=== PATIENT | female | born 1980 | race Caucasian/White ===

== ENCOUNTER → 2018-12-17 | Outpatient (CLI) | payer BC ==
--- NOTE | 2018-12-17 13:37 | MM ---
Reason for exam: screening (asymptomatic). Last mammogram was performed 3 years and 1 month ago. History: Patient had first child at age 34. Family history of breast cancer in maternal grandmother. Physical Findings: A clinical breast exam by your physician is recommended on an annual basis and results should be correlated with mammographic findings. MG 3D Screening Mammo W/Cad Bilateral CC and MLO view(s) were taken. Prior study comparison: November 22, 2015, mammogram, performed at [facility]. May 21, 2013, mammogram, performed at [facility]. The breast tissue is extremely dense which could obscure a lesion on mammography. No suspicious abnormality. No significant changes when compared with prior studies. ASSESSMENT: Negative, BI-RAD 1 RECOMMENDATION: Routine screening mammogram of both breasts in 1 year.
== END | disposition home or self-care (01) ==
LOC: RADMAMWWP 08:08
PROVIDERS: ATTEND Obstetrics & Gynecology
DX: Z12.31 Encounter for screening mammogram for malignant neoplasm of breast (principal)
CPT/HCPCS: 77063; 77067

== ENCOUNTER 2020-02-16 06:01 | Inpatient (IN) | payer BC ==
[2020-02-16] MEDS ORDERED: SODIUM CHLORIDE 0.9% 1,000 ML IV STA (06:17)
[2020-02-16] MEDS ORDERED: METOPROLOL TARTRATE 5 MG/5 ML VIAL IVP STA (06:17)
[2020-02-16] MEDS ORDERED: ADENOSINE 3 MG/ML 2 ML VIAL IVP STA (06:17)
--- NOTE | 2020-02-16 06:17 | ED ---
Arrhythmia/Palpitations HPI - General Chief Complaint: Arrhythmia/Palpitations Stated Complaint: Heart racing, facial tightness Time Seen by Provider: 02/16/20 06:14 Source: patient, family, RN notes reviewed, old records reviewed Mode of arrival: wheelchair Limitations: no limitations - History of Present Illness Initial Comments: This is a 39-year-old female the medical history presenting for severe palpitations and increased heart rate. Patient denies any history of similar complaint of she did have an episode in high school and college which she did have an elevated heart rate in the tooth some vaginal maneuvers which improved but never was started on medication. Patient denies chance of current . No fevers no recent travel history no sick contacts no drugs or alcohol abuse is not taking excessive caffeine or diet pills MD Complaint: rapid heart beat, "heart racing", palpitations, irregular heart beat -: hour(s) (2) Arrhythmia History: SVT Associated Symptoms: shortness of breath, anxiety, diaphoresis Treatments Prior to Arrival: vagal maneuvers (tried in ER) - Related Data Home Medications Medication Instructions Recorded Confirmed Cetirizine HCl [Zyrtec] 10 mg PO DAILY 02/16/20 02/16/20 Allergies Allergy/AdvReac Type Severity Reaction Status Date / Time Sulfa (Sulfonamide Allergy Intermediate Rash/Hives Verified 02/16/20 08:04 Antibiotics) iodine Allergy Rash/Hives Verified 02/16/20 08:04 Review of Systems ROS Statement: Those systems with pertinent positive or pertinent negative responses have been documented in the HPI. ROS Other: All systems not noted in ROS Statement are negative. Past Medical History Past Medical History: No Reported History History of Any Multi-Drug Resistant Organisms: None Reported Additional Past Surgical History / Comment(s): widsom teeth Past Anesthesia/Blood Transfusion Reactions: No Reported Reaction Past Psychological History: Anxiety Smoking Status: Never smoker Past Alcohol Use History: None Reported Past Drug Use History: None Reported - Past Family History Father Family Medical History: Myocardial Infarction ([place]) Additional Family Medical History / Comment(s): Father from [place] at the age of 57 yrs. Mother Family Medical History: No Reported History Additional Family Medical History / Comment(s): Mother is healthy General Exam Limitations: no limitations General appearance: alert, anxious, in distress Head exam: Present: atraumatic, normocephalic, normal inspection Eye exam: Present: normal appearance, PERRL, EOMI. Absent: scleral icterus, conjunctival injection, periorbital swelling ENT exam: Present: normal exam, mucous membranes moist Neck exam: Present: normal inspection. Absent: tenderness, meningismus, lymphadenopathy Respiratory exam: Present: normal lung sounds bilaterally. Absent: respiratory distress, wheezes, rales, rhonchi, stridor Cardiovascular Exam: Present: tachycardia, normal heart sounds. Absent: systolic murmur, diastolic murmur, rubs, gallop, clicks GI/Abdominal exam: Present: soft, normal bowel sounds. Absent: distended, tenderness, guarding, rebound, rigid Extremities exam: Present: normal inspection, full ROM, normal capillary refill. Absent: tenderness, pedal edema, joint swelling, calf tenderness Back exam: Present: normal inspection Neurological exam: Present: alert, oriented X3, CN II-XII intact Psychiatric exam: Present: normal affect, normal mood Skin exam: Present: warm, dry, intact, normal color. Absent: rash Course Vital Signs 02/16/20 02/16/20 02/16/20 06:03 06:40 06:46 Temperature 98.8 F Pulse Rate 120 H 106 H Pulse Rate [ Pulse Oximetery ] Respiratory 18 20 18 Rate Blood Pressure 108/92 131/88 131/88 Blood Pressure [Right Arm] O2 Sat by Pulse 100 100 100 Oximetry 02/16/20 02/16/20 02/16/20 06:55 08:09 12:00 Temperature 99.4 F 97.9 F Pulse Rate 106 H 113 H Pulse Rate [ 72 Pulse Oximetery ] Respiratory 18 18 Rate Blood Pressure 123/86 Blood Pressure 117/82 [Right Arm] O2 Sat by Pulse 100 99 Oximetry 02/16/20 15:27 Temperature Pulse Rate Pulse Rate [ 72 Pulse Oximetery ] Respiratory Rate Blood Pressure Blood Pressure [Right Arm] O2 Sat by Pulse Oximetry - Reevaluation(s) Reevaluation #1: 02/16/20 06:36 Medical records reviewed Reevaluation #2: 02/16/20 06:36 Symptoms mildly improved her heart is racing even after 12 of adenosine, SVT to sinus tach Patient symptoms are continuing to improve with beta sharlene EKG Findings - EKG Comments: EKG Findings:: EKG shows SVT rate of 213 QRS 76 QTC 369. Repeat. EKG is sinus tachycardia 125. 128 QRS 62 QTC 430 Medical Decision Making - Medical Decision Making 39 female with rhythm in SVT converted with adenosine to sinus tachycardia, patient be admitted for cardiology observation and treatment - Lab Data Result diagrams: 02/16/20 06:33 02/16/20 06:33 Lab Results 02/16/20 02/16/20 02/16/20 Range/Units 06:33 06:33 06:33 WBC 9.1 (3.8-10.6) k/uL RBC 4.99 (3.80-5.40) m/uL Hgb 14.1 (11.4-16.0) gm/dL Hct 43.6 (34.0-46.0) % MCV 87.5 (80.0-100.0) fL MCH 28.4 (25.0-35.0) pg MCHC 32.4 (31.0-37.0) g/dL RDW 12.9 (11.5-15.5) % Plt Count 395 (150-450) k/uL Neutrophils % 63 % Lymphocytes % 26 % Monocytes % 5 % Eosinophils % 3 % Basophils % 1 % Neutrophils # 5.7 (1.3-7.7) k/uL Lymphocytes # 2.4 (1.0-4.8) k/uL Monocytes # 0.5 (0-1.0) k/uL Eosinophils # 0.3 (0-0.7) k/uL Basophils # 0.1 (0-0.2) k/uL PT 10.0 (9.0-12.0) sec INR 1.0 (<1.2) APTT 21.9 L (22.0-30.0) sec Sodium 143 (137-145) mmol/L Potassium 4.0 (3.5-5.1) mmol/L Chloride 109 H (98-107) mmol/L Carbon Dioxide 23 (22-30) mmol/L Anion Gap 11 mmol/L BUN 15 (7-17) mg/dL Creatinine 0.70 (0.52-1.04) mg/dL Est GFR (CKD-EPI)AfAm >90 (>60 ml/min/1.73 sqM) Est GFR (CKD-EPI)NonAf >90 (>60 ml/min/1.73 sqM) Glucose 108 H (74-99) mg/dL Calcium 9.5 (8.4-10.2) mg/dL Magnesium 1.9 (1.6-2.3) mg/dL Total Bilirubin 0.3 (0.2-1.3) mg/dL AST 51 H (14-36) U/L ALT 47 H (4-34) U/L Alkaline Phosphatase 56 (38-126) U/L Creatine Kinase 50 (30-135) U/L Troponin I (0.000-0.034) ng/mL Total Protein 7.7 (6.3-8.2) g/dL Albumin 4.7 (3.5-5.0) g/dL TSH 3.310 (0.465-4.680) mIU/L 02/16/20 Range/Units 06:33 WBC (3.8-10.6) k/uL RBC (3.80-5.40) m/uL Hgb (11.4-16.0) gm/dL Hct (34.0-46.0) % MCV (80.0-100.0) fL MCH (25.0-35.0) pg MCHC (31.0-37.0) g/dL RDW (11.5-15.5) % Plt Count (150-450) k/uL Neutrophils % % Lymphocytes % % Monocytes % % Eosinophils % % Basophils % % Neutrophils # (1.3-7.7) k/uL Lymphocytes # (1.0-4.8) k/uL Monocytes # (0-1.0) k/uL Eosinophils # (0-0.7) k/uL Basophils # (0-0.2) k/uL PT (9.0-12.0) sec INR (<1.2) APTT (22.0-30.0) sec Sodium (137-145) mmol/L Potassium (3.5-5.1) mmol/L Chloride (98-107) mmol/L Carbon Dioxide (22-30) mmol/L Anion Gap mmol/L BUN (7-17) mg/dL Creatinine (0.52-1.04) mg/dL Est GFR (CKD-EPI)AfAm (>60 ml/min/1.73 sqM) Est GFR (CKD-EPI)NonAf (>60 ml/min/1.73 sqM) Glucose (74-99) mg/dL Calcium (8.4-10.2) mg/dL Magnesium (1.6-2.3) mg/dL Total Bilirubin (0.2-1.3) mg/dL AST (14-36) U/L ALT (4-34) U/L Alkaline Phosphatase (38-126) U/L Creatine Kinase (30-135) U/L Troponin I <0.012 (0.000-0.034) ng/mL Total Protein (6.3-8.2) g/dL Albumin (3.5-5.0) g/dL TSH (0.465-4.680) mIU/L Critical Care Time Critical Care Time: Yes Total Critical Care Time: 31 Disposition Clinical Impression: SVT (supraventricular tachycardia), Palpitations, Tachycardia Disposition: ADMITTED IP TO THIS [facility] Condition: Fair Is patient prescribed a controlled substance at d/c from ED?: No
[2020-02-16] MEDS ORDERED: NITROGLYCERIN SL TABS 0.4 MG TAB SUBLINGUAL PRN (06:37)
[2020-02-16 06:45] LABS: Basophils # (A) 0.1 k/uL (0-0.2); Basophils % (A) 1 %; Eosinophils # (A) 0.3 k/uL (0-0.7); Eosinophils % (A) 3 %; HCT 43.6 % (34.0-46.0); HGB 14.1 gm/dL (11.4-16.0); Lymphocytes # (A) 2.4 k/uL (1.0-4.8); Lymphocytes % (A) 26 %; MCH 28.4 pg (25.0-35.0); MCHC 32.4 g/dL (31.0-37.0); MCV 87.5 fL (80.0-100.0); Mean Platelet Volume 7.8; Monocytes # (A) 0.5 k/uL (0-1.0); Monocytes % (A) 5 %; Neutrophils # (A) 5.7 k/uL (1.3-7.7); Neutrophils % (A) 63 %; Platelet Count 395 k/uL (150-450); RBC 4.99 m/uL (3.80-5.40); RDW 12.9 % (11.5-15.5); WBC 9.1 k/uL (3.8-10.6)
[2020-02-16 06:54] LABS: ALT 47 U/L (4-34); AST 51 U/L (14-36); African American GFR (CKD) >90 (>60 ml/min/1.73 sqM); Albumin 4.7 g/dL (3.5-5.0); Alkaline Phosphatase 56 U/L (38-126); Anion Gap 11 mmol/L; Blood Urea Nitrogen 15 mg/dL (7-17); Calcium 9.5 mg/dL (8.4-10.2); Carbon Dioxide 23 mmol/L (22-30); Chloride 109 mmol/L (98-107); Creatine Kinase 50 U/L (30-135); Glucose 108 mg/dL (74-99); Magnesium 1.9 mg/dL (1.6-2.3); Non-African American GFR(CKD) >90 (>60 ml/min/1.73 sqM); Sodium 143 mmol/L (137-145); Total Bilirubin 0.3 mg/dL (0.2-1.3); Total Protein 7.7 g/dL (6.3-8.2)
[2020-02-16 07:03] LABS: Partial Thromboplastin Time 21.9 sec (22.0-30.0)
[2020-02-16] MEDS: METOPROLOL SUCCINATE (ER) 25 MG TAB.ER.24H PO SCH (10:00)
--- NOTE | 2020-02-16 11:01 | ECHOF ---
Referral Reason:svt MEASUREMENTS -------- HEIGHT: 157.5 cm WEIGHT: 59.0 kg BP: 131/88 RVIDd: 2.7 cm (< 3.3) IVSd: 0.8 cm (0.6 - 1.1) LVIDd: 3.5 cm (3.9 - 5.3) LVPWd: 0.8 cm (0.6 - 1.1) IVSs: 1.3 cm LVIDs: 2.0 cm LVPWs: 1.5 cm LAESV Index (A-L): 18.47 ml/m Ao Diam: 3.1 cm (2.0 - 3.7) AV Cusp: 1.7 cm (1.5 - 2.6) LA Diam: 1.6 cm (2.7 - 3.8) MV EXCURSION: 20.954 mm (> 18.000) MV EF SLOPE: 127 mm/s (70 - 150) EPSS: 1.0 cm MV E Jeet: 1.09 m/s MV DecT: 229 ms MV A Jeet: 0.65 m/s MV E/A Ratio: 1.67 RAP: 5.00 mmHg RVSP: 10.49 mmHg TAPSE: 21.52 mm FINDINGS -------- Resting tachycardia (HR>100bpm). This was a technically good study. The left ventricular size is normal. Left ventricular wall thickness is normal. Overall left vent ricular systolic function is normal with, an EF between 55 - 60 %. The diastolic filling pattern is normal for the age of the patient 8.69. The right ventricle is normal in size. The left atrial size is normal. Normal LA size by volume 22+/-6 ml/m2. The right atrial size is normal. Interatrial and interventricular septum intact. The aortic valve is trileaflet and appears structurally normal. The mitral valve is normal. There is trace mitral regurgitation. The tricuspid valve appears structurally normal. Trace tricuspid regurgitation present. Right simone tricular systolic pressure is normal at < 35 mmHg. There is no pulmonic regurgitation present. The aortic root size is normal. Normal inferior vena cava with normal inspiratory collapse consistent with estimated right atrial pre ssure of 5 mmHg. There is no pericardial effusion. CONCLUSIONS -------- 1. Left ventricular wall thickness is normal. 2. Overall left ventricular systolic function is normal with, an EF between 55 - 60 %. 3. The diastolic filling pattern is normal for the age of the patient 8.69 4. There is trace mitral regurgitation. 5. Trace tricuspid regurgitation present. AGENCY DEVELOPMENT MANAGER: Aria Worthy RDCS
[2020-02-16] MEDS ORDERED: HEPARIN SODIUM,PORCINE 5,000 UNIT/ML 1 ML VIAL IV PRN (11:19)
[2020-02-16] MEDS ORDERED: HEPARIN SODIUM,PORCINE 5,000 UNIT/ML 1 ML VIAL IV ONE (11:19)
[2020-02-16] MEDS: HEPARIN SOD,PORK IN 0.45% NACL 25,000 UNIT in 0.45% NACL 1 250ML.BAG IV SCH (11:44)
--- NOTE | 2020-02-16 15:05 | CONS ---
CONSULTATION Tati is a 39-year-old lady with history of intermittent episodes of palpitations all her life and prior history of SVT, who has not seen a director of events in the last 10 years, comes into hospital complaining of sustained palpitations. She had some chest discomfort associated with it. When she first came to the hospital, she was found to be in SVT with a heart rate of 213. She converted to sinus rhythm following an adenosine. At the time of my evaluation, she is in sinus rhythm with PACs in sinus tachycardia. She denies chest pain, difficulty in breathing, dizziness or syncope. There is no history of leg edema. She is fairly active physically. PAST MEDICAL HISTORY: Negative for hypertension, diabetes, dyslipidemia. MEDICATIONS: She is on Zyrtec at home. ALLERGIES: IV DYE and SULFA. FAMILY HISTORY: Significant for premature coronary artery disease. SOCIAL HISTORY: Negative for current smoking, EtOH abuse, or drug abuse. REVIEW OF SYSTEMS: HEENT: Unremarkable. CARDIAC: As described above. RESPIRATORY: As described above. GI: Negative. GENITOURINARY: Negative. ALLERGY/IMMUNOLOGY: Negative. SKIN: Negative. MUSCULOSKELETAL: Negative. DERM: Negative. CONSTITUTIONAL: Negative. ONCOLOGICAL: Negative. TELEVISION REPAIRMAN: Negative. PHYSICAL EXAM: Comfortable at rest. Heart rate is around 110 beats per minute. Blood pressure is 143/86, respiratory rate is 18. O2 saturation is 100% on room air. There is no jugular venous distention. Carotid upstroke is normal. There is no bruit. Chest exam reveals good air entry bilaterally. Heart exam reveals first and second heart sounds. No gallop. No murmur. Abdomen is soft, nontender. Exam of extremities did not reveal edema. Peripheral pulses are felt. LABS: Show that the hemoglobin is 14.1, platelet count is 395, potassium is 4, creatinine is 0.7. Troponin is negative. TSH is normal. ASSESSMENT: Paroxysmal SVT. PLAN: I will start the patient on a beta sharlene. Obtain a 2D echo. If she has a structurally normal heart doing well, will be able to discharge her home tomorrow. I talked about her treatment options in the long run including EP evaluation and ablation. She is going to think over these and will make a decision at the time of discharge. I anticipate her going home tomorrow. MMODL / IJN: [id number] /
--- NOTE | 2020-02-16 16:34 | PN ---
PROGRESS NOTE ADDENDUM NOTE: This is a 39-year-old lady who is admitted to hospital with SVT, had some jaw discomfort during the SVT and had mild troponin elevation. The troponin elevation could be due to supply/demand mismatch related SVT with a heart rate of 200 beats per minute. Echocardiogram did not reveal any wall motion abnormalities. I am going to start her on heparin while we wait for another set of troponin to come, then decide on either doing a stress test or a cardiac catheterization tomorrow. MMODL / IJN: [id number] /
[2020-02-16] MEDS ORDERED: LORazepam 1 MG TAB PO PRN (17:33)
--- NOTE | 2020-02-16 17:33 | P.HPIM ---
History of Present Illness H&P Date: 02/16/20 Tati Shipley, is a 39-year-old female who presented to [facility] emergency room with a chief complaint of palpitation, patient stated that she had episodes of SVT many years ago, and her symptoms felt like a new episode of SVT. She was evaluated in the emergency room and was found to have SVT, she was given add Indocin and was admitted to telemetry floor cardiology consultation was requested, patient denies any chest pain however she felt a tightness sensation in her neck and in her jaw, her first troponin level was negative however the second one was slightly elevated, patient was evaluated by cardiology and was started on IV heparin, awaiting further evaluation. On review of systems otherwise patient denies any complaints there is no fever or chills no headache or dizziness no chest pain no shortness of breath no cough no nausea or vomiting no abdominal pain no diarrhea no burning with urination no frequency or urgency and no hematuria no weakness or numbness in any of her extremities no change in her vision speech or gait. Past Medical History Past Medical History: GERD/Reflux, Renal Disease, Supraventricular Tachycardia (SVT) Additional Past Medical History / Comment(s): Prolapsed mitral valve, past SVT converted with caratid massage and on her own, seasonal allergies, UTI, nephrolithiasis History of Any Multi-Drug Resistant Organisms: None Reported Past Surgical History: Section Additional Past Surgical History / Comment(s): widsom teeth extraction Past Anesthesia/Blood Transfusion Reactions: No Reported Reaction Smoking Status: Never smoker - Past Family History Father Family Medical History: Myocardial Infarction ([place]) Additional Family Medical History / Comment(s): Father from [place] at the age of 57 yrs. Mother Family Medical History: No Reported History Additional Family Medical History / Comment(s): Mother is healthy Medications and Allergies Home Medications Medication Instructions Recorded Confirmed Type Cetirizine HCl [Zyrtec] 10 mg PO DAILY 02/16/20 02/16/20 History Allergies Allergy/AdvReac Type Severity Reaction Status Date / Time Sulfa (Sulfonamide Allergy Intermediate Rash/Hives Verified 02/16/20 08:04 Antibiotics) iodine Allergy Rash/Hives Verified 02/16/20 08:04 Physical Exam Vitals: Vital Signs Temp Pulse Resp BP Pulse Ox 02/16/20 08:09 99.4 F 113 H 18 123/86 100 02/16/20 06:55 106 H 02/16/20 06:46 106 H 18 131/88 100 02/16/20 06:40 120 H 20 131/88 100 02/16/20 06:03 98.8 F 18 108/92 100 Intake and Output 02/15/20 02/16/20 02/16/20 22:59 06:59 14:59 Other: Weight 58.967 kg 58.967 kg In general patient is alert and oriented 3 in no apparent distress HEENT head normocephalic and atraumatic Neck is supple no JVD no goiter no lymphadenopathy Chest exam reveals clear respiratory sounds no crackles no wheezing Cardiac exam reveals regular heart sounds no gallops no murmurs Abdomen is soft nontender no organomegaly with normal bowel sounds Extremity exam reveals no edema no cyanosis or clubbing Neurological examination reveals no gross focal deficit Results CBC & Chem 7: 02/16/20 06:33 02/16/20 06:33 Labs: Abnormal Lab Results - Last 24 Hours (Table) 02/16/20 02/16/20 Range/Units 06:33 06:33 APTT 21.9 L (22.0-30.0) sec Chloride 109 H (98-107) mmol/L Glucose 108 H (74-99) mg/dL AST 51 H (14-36) U/L ALT 47 H (4-34) U/L Thrombosis Risk Factor Assmnt - Choose All That Apply Any of the Below Risk Factors Present?: Yes Each Factor Represents 1 point: Age 41-60 years Other Risk Factors: No Other congenital or acquired thrombophilia - If yes, enter type in comment: No Thrombosis Risk Factor Assessment Total Risk Factor Score: 1 Thrombosis Risk Factor Assessment Level: Low Risk Assessment and Plan Plan: 1. Episode of SVT responded to Adenosine in the emergency room 2. Neck and jaw tightness was slight elevation in troponin level patient was started on IV heparin cardiology with reevaluate 3. Slight elevation in liver enzymes will monitor 4. Anxiety disorder will give Ativan at bedtime as needed Will follow during this admission for medical management
[2020-02-16] MEDS: LORATADINE 10 MG TAB PO SCH (17:49)
[2020-02-17 02:00] LABS: Cholesterol 137 mg/dL (<200); HDL Cholesterol 47 mg/dL (40-60); LDL Cholesterol,Calculated 75 mg/dL (0-99); Triglycerides 73 mg/dL (<150)
[2020-02-17 05:06] VITALS: RESP 18
[2020-02-17] MEDS ORDERED: ASPIRIN 325 MG TAB PO SCH (09:00)
[2020-02-17] MEDS: METOPROLOL SUCCINATE (ER) 25 MG TAB.ER.24H PO SCH (11:58)
[2020-02-17] MEDS: LORATADINE 10 MG TAB PO SCH (11:59)
[2020-02-17] MEDS: HEPARIN SOD,PORK IN 0.45% NACL 25,000 UNIT in 0.45% NACL 1 250ML.BAG IV SCH (12:34)
[2020-02-17 12:37] VITALS: BP 117/62; PULSE 82; TEMP 98.2
--- NOTE | 2020-02-17 14:12 | ECHOS ---
STRESS ECHOCARDIOGRAM LUMASON: Vial INDICATIONS: MEDICATIONS: BASELINE HEART RATE: 80 BASELINE BLOOD PRESSURE: 108/87 MAXIMUM HEART RATE: 163 MAXIMUM BLOOD PRESSURE: 129/75 85% MPHR: 152 100% MPHR: 179 METS: MAXIMUM STAGE REACHED: TOTAL EXERCISE TIME: DATE OF SERVICE: Baseline EKG revealed a normal sinus rhythm with nonspecific T-wave flattening. Patient walked on standard Betito protocol for 10 minutes 20 seconds, achieved a maximal heart rate of 160 beats per minute which is well above 85% of her predicted maximal. She did not have any angina. She developed fatigue and shortness of breath. There were rare isolated PACs and PVCs. There was no ST-segment changes to indicate ischemia. By EKG criteria, this is a negative stress test with excellent exercise capacity. Baseline echo images revealed normal wall motion and wall thickening of all segments. At peak exercise there was good augmentation of left ventricular, wall motion and wall thickening of all segments suggesting that there is no evidence of stress-induced ischemia on this study. FINAL IMPRESSION: 1. Excellent exercise capacity with a negative stress test by EKG criteria. 2. Normal stress echocardiogram without evidence of ischemia. MMODL / IJN: [id number] /
--- NOTE | 2020-02-17 16:03 | PN ---
PROGRESS NOTE Tati is a 39-year-old lady who was admitted to hospital with SVT, had mild elevation in troponin, probably secondary to supply-demand mismatch. She is doing well and has not had any issues since yesterday. I started her on heparin. Echocardiogram shows normal LV function and wall motion. There is no evidence of myocardial infarction, otherwise. I am going to obtain a stress echo on her and if she has ischemia, we will consider cardiac catheterization. If not, she will be discharged home. PHYSICAL EXAM: She is comfortable at rest. Vital signs are stable. O2 saturation is 97% on room air. There is no jugular venous distention. Carotid upstroke is normal. There is no bruit. Chest exam reveals good air entry bilaterally. Heart exam reveals first and second heart sounds. No gallop. Exam of extremities did not reveal any edema. LABS: Show that the TSH is normal at 3.3, troponins were flat across at 0.3, 0.3, and 0.1. LDL cholesterol is 75. ASSESSMENT: 1. Paroxysmal supraventricular tachycardia. 2. Elevated troponin secondary to tachycardia. PLAN: I will obtain a stress echo on her. If this is normal, she will go home on the beta blockers and we will consider EP evaluation in the outpatient setting. MMODL / IJN: [id number] /
--- NOTE | 2020-02-17 17:25 | P.DS ---
Providers Date of admission: 02/16/20 06:37 Expected date of discharge: 02/17/20 Attending physician: Catrachito Chicas Consults: 02/16/20 06:37 Consult Physician Urgent Consulting Provider: Jocelyn Sparrow Consult Reason/Comments: svt Do you want consulting provider notified?: Yes Primary care physician: Catrachito [facility] Course: Diagnosis on discharge: 1. Episode of SVT responded to Adenosine in the emergency room, patient was started on Ecotrin and metoprolol succinate 25 mg once daily by cardiology. 2. Neck and jaw tightness was slight elevation in troponin level , stress echo was done on 02/17/2020 and was within normal limits patient was cleared by cardiology for discharge 3. Slight elevation in liver enzymes will monitor 4. Anxiety disorder will give Ativan at bedtime as needed Hospital course: Tati Shipley, is a 39-year-old female who presented to [facility] emergency room with a chief complaint of palpitation, patient stated that she had episodes of SVT many years ago, and her symptoms felt like a new episode of SVT. She was evaluated in the emergency room and was found to have SVT, she was given add Indocin and was admitted to telemetry floor cardiology consultation was requested, patient denies any chest pain however she felt a tightness sensation in her neck and in her jaw, her first troponin level was negative however the second one was slightly elevated, patient was evaluated by cardiology and was started on IV heparin, awaiting further evaluation. On review of systems otherwise patient denies any complaints there is no fever or chills no headache or dizziness no chest pain no shortness of breath no cough no nausea or vomiting no abdominal pain no diarrhea no burning with urination no frequency or urgency and no hematuria no weakness or numbness in any of her extremities no change in her vision speech or gait. On 02/17/2020 patient was seen and examined on the telemetry floor she is alert and oriented 3 in no apparent distress there is no fever or chills no headache or dizziness no chest pain or shortness of breath no cough no nausea or vomiting no abdominal pain no diarrhea no burning with urination no frequency or urgency no hematuria no new episodes of tachycardia patient underwent stress echo today which was within normal limits she was cleared by cardiology for discharge. Patient Condition at Discharge: Fair Plan - Discharge Summary Discharge Rx Participant: No New Discharge Prescriptions: New Aspirin EC [Ecotrin Low Dose] 81 mg PO DAILY 30 Days #30 tablet. Metoprolol Succinate (ER) [Toprol XL] 25 mg PO DAILY tab.er.24h Continue Cetirizine HCl [Zyrtec] 10 mg PO DAILY Discharge Medication List Cetirizine HCl [Zyrtec] 10 mg PO DAILY 02/16/20 [History] Aspirin EC [Ecotrin Low Dose] 81 mg PO DAILY 30 Days #30 tablet. 02/17/20 [Rx] Metoprolol Succinate (ER) [Toprol XL] 25 mg PO DAILY tab.er.24h 02/17/20 [Rx] Follow up Appointment(s)/Referral(s): Gerri Means MD [STAFF PHYSICIAN] - 1 Week (Office closed - please call to make an appointment) Catrachito Chicas MD [Primary Care Provider] - 1-2 days (Office closed - please call to make an appointment) Patient Instructions/Handouts: Supraventricular Tachycardia (DC)
== END 2020-02-17 17:49 | disposition home or self-care (01) | DRG 310 ==
LOC: EC 06:01 → 3SCARD 06:37
PROVIDERS: ADMIT Internal Medicine; ATTEND Internal Medicine
DX: I47.1 Supraventricular tachycardia (principal); F41.9 Anxiety disorder, unspecified; R79.89 Other specified abnormal findings of blood chemistry; R94.5 Abnormal results of liver function studies; I34.1 Nonrheumatic mitral (valve) prolapse; J30.2 Other seasonal allergic rhinitis; Z88.2 Allergy status to sulfonamides; Z91.041 Radiographic dye allergy status; Z82.49 Family history of ischemic heart disease and other diseases of the circulatory system; Z87.442 Personal history of urinary calculi; Z11.59 Encounter for screening for other viral diseases
CPT/HCPCS: 36415; 80053; 80061; 82550; 83735; 84443; 84484; 85025; 85610; 85730; 93005; 93306; 93351; 96361; 96365; 96375; 96376; 99291

== ENCOUNTER → 2020-07-27 | Outpatient (CLI) | payer BC ==
--- NOTE | 2020-07-28 14:49 | MM ---
Reason for exam: screening (asymptomatic). Last mammogram was performed 1 year and 7 months ago. History: Patient had first child at age 34. Family history of breast cancer in maternal grandmother, breast cancer in maternal cousin at age 40, and breast cancer in maternal aunt at age 78. Physical Findings: A clinical breast exam by your physician is recommended on an annual basis and results should be correlated with mammographic findings. MG 3D Screening Mammo W/Cad Bilateral CC and MLO view(s) were taken. Prior study comparison: December 17, 2018, bilateral MG 3d screening mammo w/cad. November 22, 2015, mammogram, performed at [facility]. The breast tissue is extremely dense which could obscure a lesion on mammography. There is no discrete abnormality. Benign bilateral axillary lymph nodes redemonstrated. ASSESSMENT: Negative, BI-RAD 1 RECOMMENDATION: Routine screening mammogram of both breasts in 1 year. Some consider bilateral ultrasound surveillance in patient with extremely dense fibroglandular tissue.
== END | disposition home or self-care (01) ==
LOC: RADMAMWWP 08:14
PROVIDERS: ATTEND Internal Medicine Geriatric Medicine
DX: Z12.31 Encounter for screening mammogram for malignant neoplasm of breast (principal)
CPT/HCPCS: 77063; 77067

== ENCOUNTER 2021-08-14 12:05 | Inpatient (IN) | payer BC ==
[2021-08-14] MEDS ORDERED: ADENOSINE 3 MG/ML 2 ML VIAL IVP STA ×2 (12:34)
[2021-08-14] MEDS ORDERED: SODIUM CHLORIDE 0.9% 1,000 ML IV STA ×2 (12:44→13:43)
--- NOTE | 2021-08-14 12:48 | ED ---
General Adult HPI - General Chief complaint: Arrhythmia/Palpitations Stated complaint: poss svt Time Seen by Provider: 08/14/21 12:11 Source: patient Mode of arrival: wheelchair Limitations: no limitations - History of Present Illness Initial comments: Dictation was produced using [employer] dictation software. please excuse any grammatical, word or spelling errors. Chief Complaint: Patient is a 41-year-old female presents emergency department for palpitations History of Present Illness: Patient is a 41-year-old female she has a past medical history of supraventricular tachycardia. Patient states that she began having palpitations today. Patient has been evaluated by cardiology for SVTs in the past. She takes a daily beta sharlene. Symptoms began earlier today. She has had success multiple times in the past trying to manage her palpitations by herself with Valsalva maneuver at home. States that she tried however was unsu ccessful. She drove herself to the emergency room. She denies any chest pain. No shortness of breath. No numbness or paresthesias. Last time she had to it chemical cardioversion was approximately 1 year ago. The ROS documented in this emergency department record has been reviewed and confirmed by me. Those systems with pertinent positive or negative responses have been documented in the HPI. All other systems are other negative and/or noncontributory. PHYSICAL EXAM: General Impression: Alert and oriented x3, not in acute distress, tremulous HEENT: Normocephalic atraumatic, extra-ocular movements intact, pupils equal and reactive to light bilaterally, mucous membranes moist. Cardiovascular: Tachycardic Chest: Able to complete full sentences, no retractions, no tachypnea Abdomen: abdomen soft, non-tender, non-distended, no organomegaly Musculoskeletal: Pulses present and equal in all extremities, no peripheral edema Motor: no focal deficits noted Neurological: CN II-XII grossly intact, no focal motor or sensory deficits noted Skin: Intact with no visualized rashes Psych: Anxious ED course: Is a 41-year-old female she has past medical history of SVT. She presents emergency department for palpitations. Upon arrival shows heart rate of 213, rest of vital signs within acceptable limits. EKG shows supraventricular tachycardia with a heart rate of 210. Initial EKG showed SVT with signs of rate-dependent ischemia. Chemical cardioversion was attempted with 6 mg of adenosine with no success. Patient started to follow anxious given lorazepam. Patient given 12 milligrams of adenosine with successful chemical cardioversion. Patient now sinus tachycardic. There does appear to be improvement of ST depressions but still slightly apparent in V3 through V5. Chin reevaluated at bedside at 2:15 PM. She is well-appearing denies any symptoms of shortness of breath or chest pain. Laboratory evaluation obtained. CBC unremarkable. Metabolic panel is negative. Cardiac enzymes negative. Patient's been monitored in the emergency department for approximately 2 hours with significant tachycardia still in the 140s. Monitor shows that patient is sinus tachycardia. Cardiology requested patient be given oral metoprolol. Patient be observed for persistent tachycardia, no obvious source, status post chemical cardioversion to treat SVT. Patient will be admitted to Dr. Vyas service. EKG interpretation: Ventricular rate 222, SVT, QRS 68, QTC 273. No MI prolong ation, no QTC prolongation. There does appear to be some rate-dependent ischemia with mild ST depressions in inferior leads and septal lateral precordial leads. - Related Data Home Medications Medication Instructions Recorded Confirmed Cetirizine HCl [Zyrtec] 10 mg PO DAILY 02/16/20 02/16/20 Previous Rx's Medication Instructions Recorded Aspirin EC [Ecotrin Low Dose] 81 mg PO DAILY 30 Days #30 02/17/20 tablet. Metoprolol Succinate (ER) [Toprol 25 mg PO DAILY tab.er.24h 02/17/20 XL] Allergies Allergy/AdvReac Type Severity Reaction Status Date / Time Sulfa (Sulfonamide Allergy Intermediate Rash/Hives Verified 08/14/21 12:07 Antibiotics) iodine Allergy Rash/Hives Verified 08/14/21 12:07 Review of Systems ROS Statement: Those systems with pertinent positive or pertinent negative responses have been documented in the HPI. ROS Other: All systems not noted in ROS Statement are negative. Past Medical History Past Medical History: Supraventricular Tachycardia (SVT) Additional Past Medical History / Comment(s): Prolapsed mitral valve, past SVT converted with caratid massage and on her own, seasonal allergies, UTI, ne phrolithiasis History of Any Multi-Drug Resistant Organisms: None Reported Past Surgical History: No Surgical Hx Reported Additional Past Surgical History / Comment(s): widsom teeth Past Anesthesia/Blood Transfusion Reactions: No Reported Reaction Past Psychological History: Anxiety Smoking Status: Never smoker Past Alcohol Use History: None Reported Past Drug Use History: None Reported - Past Family History Father Family Medical History: Myocardial Infarction ([place]) Additional Family Medical History / Comment(s): Father from [place] at the age of 57 yrs. Mother Family Medical History: No Reported History Additional Family Medical History / Comment(s): Mother is healthy General Exam Limitations: no limitations Course Vital Signs 08/14/21 08/14/21 08/14/21 12:08 12:40 12:50 Temperature 97.5 F L Pulse Rate 213 H 135 H 135 H Respiratory 20 18 24 Rate Blood Pressure 142/85 127/69 102/77 O2 Sat by Pulse 99 100 100 Oximetry 08/14/21 08/14/21 13:00 13:10 Temperature Pulse Rate 141 H 140 H Respiratory 22 20 Rate Blood Pressure 121/66 121/66 O2 Sat by Pulse 100 Oximetry Medical Decision Making - Lab Data Result diagrams: 08/14/21 12:45 08/14/21 12:45 Lab Results 08/14/21 08/14/21 08/14/21 Range/Units 12:45 12:45 12:45 WBC 8.4 (3.8-10.6) k/uL RBC 4.90 (3.80-5.40) m/uL Hgb 12.8 (11.4-16.0) gm/dL Hct 40.2 (34.0-46.0) % MCV 82.1 (80.0-100.0) fL MCH 26.2 (25.0-35.0) pg MCHC 32.0 (31.0-37.0) g/dL RDW 12.9 (11.5-15.5) % Plt Count 344 (150-450) k/uL MPV 7.3 Neutrophils % 71 % Lymphocytes % 20 % Monocytes % 6 % Eosinophils % 1 % Basophils % 0 % Neutrophils # 5.9 (1.3-7.7) k/uL Lymphocytes # 1.7 (1.0-4.8) k/uL Monocytes # 0.5 (0-1.0) k/uL Eosinophils # 0.1 (0-0.7) k/uL Basophils # 0.0 (0-0.2) k/uL Sodium 138 (137-145) mmol/L Potassium 4.0 (3.5-5.1) mmol/L Chloride 105 (98-107) mmol/L Carbon Dioxide 25 (22-30) mmol/L Anion Gap 8 mmol/L BUN 18 H (7-17) mg/dL Creatinine 0.55 (0.52-1.04) mg/dL Est GFR (CKD-EPI)AfAm >90 (>60 ml/min/1.73 sqM) Est GFR (CKD-EPI)NonAf >90 (>60 ml/min/1.73 sqM) Glucose 117 H (74-99) mg/dL Calcium 10.0 (8.4-10.2) mg/dL Magnesium 1.7 (1.6-2.3) mg/dL Troponin I <0.012 (0.000-0.034) ng/mL Disposition Clinical Impression: SVT (supraventricular tachycardia), Tachycardia Disposition: ADMITTED IP TO THIS HOSP Condition: Fair Referrals: Dev Cota MD [Primary Care Provider] - 1-2 days
[2021-08-14] MEDS ORDERED: LORazepam 2 MG/ML INJ IV PRN (13:01)
[2021-08-14] MEDS ORDERED: LORazepam 2 MG/ML INJ IV STA ×2 (13:02→13:07)
[2021-08-14 13:06] LABS: African American GFR (CKD) >90 (>60 ml/min/1.73 sqM); Anion Gap 8 mmol/L; Blood Urea Nitrogen 18 mg/dL (7-17); Carbon Dioxide 25 mmol/L (22-30); Chloride 105 mmol/L (98-107); Glucose 117 mg/dL (74-99); Magnesium 1.7 mg/dL (1.6-2.3); Non-African American GFR(CKD) >90 (>60 ml/min/1.73 sqM); Sodium 138 mmol/L (137-145)
[2021-08-14 13:32] LABS: Basophils % (A) 0 %; Eosinophils # (A) 0.1 k/uL (0-0.7); Eosinophils % (A) 1 %; HCT 40.2 % (34.0-46.0); HGB 12.8 gm/dL (11.4-16.0); Lymphocytes # (A) 1.7 k/uL (1.0-4.8); Lymphocytes % (A) 20 %; MCH 26.2 pg (25.0-35.0); MCV 82.1 fL (80.0-100.0); Mean Platelet Volume 7.3; Monocytes # (A) 0.5 k/uL (0-1.0); Monocytes % (A) 6 %; Neutrophils # (A) 5.9 k/uL (1.3-7.7); Neutrophils % (A) 71 %; Platelet Count 344 k/uL (150-450); RDW 12.9 % (11.5-15.5); WBC 8.4 k/uL (3.8-10.6)
[2021-08-14] MEDS ORDERED: METOPROLOL TARTRATE 50 MG TAB PO STA (14:02)
[2021-08-14] MEDS ORDERED: NALOXONE 0.4 MG/ML 1 ML VIAL IV PRN (14:14)
[2021-08-14] MEDS ORDERED: SODIUM CHLORIDE 0.9% 1,000 ML IV SCH (14:15)
[2021-08-14 16:33] VITALS: RESP 16
[2021-08-14] MEDS ORDERED: LORazepam 0.5 MG TAB PO PRN (19:46)
[2021-08-14] MEDS ORDERED: METOPROLOL SUCCINATE (ER) 25 MG TAB.ER.24H PO SCH (21:00)
[2021-08-15 07:47] LABS: T4, Free (Free Thyroxine) 5.75 ng/dL (0.78-2.19)
[2021-08-15] MEDS ORDERED: METOPROLOL TARTRATE 12.5 MG TAB PO SCH (09:00)
[2021-08-15] MEDS ORDERED: VERAPAMIL 40 MG TAB PO SCH (09:00)
[2021-08-15] MEDS ORDERED: LORATADINE 10 MG TAB PO SCH (09:00)
--- NOTE | 2021-08-15 11:20 | P.CRDCN ---
History of Present Illness Consult date: 08/15/21 History of present illness: HISTORY OF PRESENT ILLNESS: This is a 41-year-old female with a past medical history significant for SVT and anxiety. Patient follows in the office with Dr. Means. We have been asked to see the patient in consultation for SVT. Patient examined at the bedside. Patient states yesterday she was at work. She bent over and when she stood up she began having palpatations. Patient has a history of SVT and she states she knew she was in SVT again. She presented to the ER. Patient was given 6mg of adenosine and then 12mg of adenosine with conversion to sinus tachycardia. The patient is prescribed metoprolol succinate at home. She was evaluated this morning by Dr. Means and switched to metoprolol tartrate. She was also started on verapamil 40 mg twice a day. Blood pressure 112/67. EKG reveals SVT. Telemetry this morning reveals sinus tachycardia. Laboratory data: WBC 8.4. Hemoglobin 12.8. Platelet count 344. Sodium 138. Potassium 4.0. B UN 18. Creatinine 0.55. Troponin negative 1. TSH less than 0.015. Free T4 5 0.75. Current home cardiac medications include metoprolol succinate 12.5 mg at night Most recent echocardiogram obtained in January 2020 revealed ejection fraction 55- 60%, trace mitral regurgitation, and trace tricuspid regurgitation. Patient underwent stress echocardiogram in January 2020 which was negative for ischemia. REVIEW OF SYSTEMS: At the time of my exam: CONSTITUTIONAL: Denies fever or chills. HEENT: Denies blurred vision, vision changes, or eye pain. Denies hemoptysis CARDIOVASCULAR: Denies chest pain. Denies orthopnea. Denies PND. Denies pal pitations RESPIRATORY: Denies shortness of breath. GASTROINTESTINAL: Denies abdominal pain. Denies nausea or vomiting. HEMATOLOGIC: Denies bleeding disorders. GENITOURINARY: Denies any blood in urine. SKIN: Denies pruitis. Denies rash. PHYSICAL EXAM: VITAL SIGNS: Reviewed. GENERAL: Well-developed in no acute distress. HEENT: Head is normocephalic. Pupils are equal, round. Sclerae anicteric. Mucous membranes of the mouth are moist. Neck supple. No JVD or thyromegaly LUNGS: Respirations even and unlabored. Lungs essentially clear to auscultation bilaterally. HEART: Tachycardic. Regular rate and rhythm. S1 and S2 heard. ABDOMEN: Soft. Nondistended. Nontender. EXTREMITIES: Normal range of motion. No clubbing or cyanosis. Peripheral pulses intact. No lower extremity edema NEUROLOGIC: Awake and alert. Oriented x 3. ASSESSMENT: SVT, s/p adenosine with conversion to sinus tachycardia History of SVT Abnormal TSH/Free T4 Anxiety PLAN: Obtain 2D echo to assess cardiac structure and function Patient with abnormal TSH/Free T4. Will defer to primary care Continue metoprolol and verapamil Dr. Garay consulted for EP evaluation for possible ablation Possible discharge home this evening Further recommendations pending patient course Nurse practitioner note has been reviewed by physician. Signing provider agrees with the documented findings, assessment, and plan of care. Past Medical History Past Medical History: Supraventricular Tachycardia (SVT) Additional Past Medical History / Comment(s): Prolapsed mitral valve, past SVT converted with caratid massage and on her own, seasonal allergies, UTI, nephrolithiasis History of Any Multi-Drug Resistant Organisms: None Reported Past Surgical History: Section Additional Past Surgical History / Comment(s): widsom teeth Past Anesthesia/Blood Transfusion Reactions: No Reported Reaction Past Psychological History: Anxiety Additional Psychological History / Comment(s): Pt resides with her fimadelinee and their 5 yr old paresh. Pt is independent. Smoking Status: Never smoker Past Alcohol Use History: None Reported Past Drug Use History: None Reported - Past Family History Father Family Medical History: Myocardial Infarction ([place]) Additional Family Medical History / Comment(s): Father from [place] at the age of 57 yrs. Mother Family Medical History: No Reported History Additional Family Medical History / Comment(s): Mother is healthy Medications and Allergies Home Medications Medication Instructions Recorded Confirmed Type Cetirizine HCl [Zyrtec] 10 mg PO DAILY 02/16/20 08/14/21 History LORazepam [Ativan] 0.5 mg PO HS PRN 08/14/21 08/14/21 History Metoprolol Succinate (ER) [Toprol 12.5 mg PO HS 08/14/21 08/14/21 History XL] Allergies Allergy/AdvReac Type Severity Reaction Status Date / Time Sulfa (Sulfonamide Allergy Intermediate Rash/Hives Verified 08/14/21 14:19 Antibiotics) iodine Allergy Rash/Hives Verified 08/14/21 14:19 Physical Exam Vitals: Vital Signs Temp Pulse Pulse Resp BP BP Pulse Ox 08/15/21 05:30 92 16 112/67 97 08/15/21 02:00 16 08/14/21 23:20 98.2 F 92 16 108/71 97 08/14/21 19:44 95 16 116/75 99 08/14/21 16:45 16 08/14/21 16:24 98.8 F 94 16 120/76 97 08/14/21 15:54 98.3 F 95 12 122/69 100 08/14/21 14:19 133 H 120/59 08/14/21 13:10 140 H 20 121/66 08/14/21 13:00 141 H 22 121/66 100 08/14/21 12:50 135 H 24 102/77 100 08/14/21 12:40 135 H 18 127/69 100 08/14/21 12:08 97.5 F L 213 H 20 142/85 99 Intake and Output 08/14/21 08/15/21 08/15/21 22:59 06:59 14:59 Intake Total 500 Balance 500 Intake: Oral 500 Other: # Voids 1 1 Weight 58.967 kg 58 kg Results 08/14/21 12:45 08/14/21 12:45 Cardiac Enzymes 08/14/21 Range/Units 12:45 Troponin I <0.012 (0.000-0.034) ng/mL CBC 08/14/21 Range/Units 12:45 WBC 8.4 (3.8-10.6) k/uL RBC 4.90 (3.80-5.40) m/uL Hgb 12.8 (11.4-16.0) gm/dL Hct 40.2 (34.0-46.0) % Plt Count 344 (150-450) k/uL Comprehensive Metabolic Panel 08/14/21 Range/Units 12:45 Sodium 138 (137-145) mmol/L Potassium 4.0 (3.5-5.1) mmol/L Chloride 105 (98-107) mmol/L Carbon Dioxide 25 (22-30) mmol/L BUN 18 H (7-17) mg/dL Creatinine 0.55 (0.52-1.04) mg/dL Glucose 117 H (74-99) mg/dL Calcium 10.0 (8.4-10.2) mg/dL Current Medications Generic Name Dose Route Start Last Admin Trade Name Freq PRN Reason Stop Dose Admin Sodium Chloride 1,000 mls @ 20 mls/hr 08/14/21 14:15 08/14/21 19:43 Saline 0.9% IV Not Given .Q24H RENATE Loratadine 10 mg 08/15/21 09:00 08/15/21 08:32 Loratadine 10 Mg Tab PO 10 mg DAILY RENATE Administration Lorazepam 0.5 mg 08/14/21 19:46 Lorazepam 0.5 Mg Tab PO HS PRN Anxiety Metoprolol Tartrate 12.5 mg 08/15/21 09:00 08/15/21 08:33 Metoprolol Tartrate 12.5 Mg Tab PO 12.5 mg BID RENATE Administration Naloxone HCl 0.2 mg 08/14/21 14:14 Naloxone 0.4 Mg/Ml 1 Ml Vial IV Q2M PRN Opioid Reversal Verapamil HCl 40 mg 08/15/21 09:00 08/15/21 08:32 Verapamil 40 Mg Tab PO 40 mg BID RENATE Administration Intake and Output 08/14/21 08/15/21 08/15/21 22:59 06:59 14:59 Intake Total 500 Balance 500 Intake: Oral 500 Other: # Voids 1 1 Weight 58.967 kg 58 kg 08/14/21 12:45 08/14/21 12:45
--- NOTE | 2021-08-15 12:07 | P.HPIM ---
History of Present Illness H&P Date: 08/15/21 HISTORY OF PRESENT ILLNESS This is a 41-year-old female patient of Dr. Cota and Dr. VALERIO Means with past medical history of SVT. Patient states that she was at work and developed palpitations and SVT. She came in the emergency center for evaluation and received adenosine 6 mg followed by 12 mg and converted to sinus tachycardia. She denies any family history of arrhythmia. She states she's been taking her metoprolol as directed. She did try some maneuvers at home including valsalva and over without improvement. CBC was unremarkable. Electrolytes normal, BUN 18 and creatinine 0.55. Blood sugar 116. Magnesium 1.7. Troponin negative 1 drop. Coronavirus PCR not detected. TSH less than 0.015, free T4 5.75. Patient has been seen by cardiology with referral placed to Dr. Garay. REVIEW OF SYSTEMS Constitutional: No fever, no chills, no night sweats. No weight change. No weakness, fatigue or lethargy. No daytime sleepiness. EENT: No headache. No blurred vision or double vision, no loss of vision. No loss of Hearing, no ringing in the ears, no dizziness. No nasal drainage or congestion. No epistaxis. No sore throat. Lungs: No shortness of breath, cough, no sputum production. No wheezing. Cardiovascular: No chest pain, no lower extremity edema. Reports palpitations. No paroxysmal nocturnal dyspnea. No orthopnea. No lightheadedness or dizziness. No syncopal episodes. Abdominal: No abdominal pain. No nausea, vomiting. No diarrhea. No constipation. No bloody or tarry stools. No loss of appetite. Genitourinary: No dysuria, increased frequency, urgency. No urinary retention. Musculoskeletal: No myalgias. No muscle weakness, no gait dysfunction, no frequent falls. No back pain. No neck pain. Integumentary: No wounds, no lesions. No rash or pruritus. No unusual bruising. No change in hair or nails. Neurologic: No aphasia. No facial droop. No change in mentation. No head injury. No headache. No paralysis. No paresthesia. Psychiatric: No depression. No anxiety. No mood swings. Endocrine: No abnormal blood sugars. No weight change. No excessive sweating or thirst. No cold intolerance. SOCIAL HISTORY Patient is a lifelong nonsmoker, no alcohol abuse, no marijuana or illicit drug use. FAMILY HISTORY Mother is alive with no major medical problems. Father at age 57 from [place],. She has one brother with no major medical problems. She does not have any sisters. Patient has one 7-year-old daughter. No family history of arrhythmia. PHYSICAL EXAMINATION Gen: This is a thin 41-year-old female resting in bed and appears to be in no acute distress. HEENT: Head is atraumatic, normocephalic. Pupils equal, round. Sclerae is anicteric. NECK: Supple. No JVD. No lymphadenopathy. No thyromegaly. LUNGS: Clear to auscultation. No wheezes or rhonchi. No intercostal retractions. HEART: Regular rate and rhythm. No murmur. ABDOMEN: Soft. Bowel sounds are present. No masses. No tenderness. EXTREMITIES: No pedal edema. No calf tenderness. NEUROLOGICAL: Patient is awake, alert and oriented x3. Cranial nerves 2 through 12 are grossly intact. ASSESSMENT AND PLAN 1. SVT status post adenosine conversion to sinus tachycardia. Cardiology consult appreciated. Consult placed with Dr. Garay, Toprol-XL changed to Lopressor 12.5 mg twice daily, added verapamil 40 mg twice daily, echocardiogram. 2. Seasonal ALLERGIES. Continue Zyrtec. 3. Generalized anxiety disorder. Continue Ativan at bedtime as needed. 4. GI prophylaxis. Protonix. 5. DVT prophylaxis. Early ambulation. 6. COVID-19 testing negative. Patient has been hospitalized during a pandemic. Patient will be admitted to the hospital for a minimum of 2 night stay. DISCHARGE PLAN Home. Impression and plan of care have been directed as dictated by the signing physician. Pili Redman nurse practitioner acting as scribe for signing physician. Past Medical History Past Medical History: Supraventricular Tachycardia (SVT) Additional Past Medical History / Comment(s): Prolapsed mitral valve, past SVT converted with caratid massage and on her own, seasonal allergies, UTI, nephrolithiasis History of Any Multi-Drug Resistant Organisms: None Reported Past Surgical History: Section Additional Past Surgical History / Comment(s): widsom teeth Past Anesthesia/Blood Transfusion Reactions: No Reported Reaction Past Psychological History: Anxiety Additional Psychological History / Comment(s): Pt resides with her fiancee and their 5 yr old paresh. Pt is independent. Smoking Status: Never smoker Past Alcohol Use History: None Reported Past Drug Use History: None Reported - Past Family History Father Family Medical History: Myocardial Infarction ([place]) Additional Family Medical History / Comment(s): Father from [place] at the age of 57 yrs. Mother Family Medical History: No Reported History Additional Family Medical History / Comment(s): Mother is healthy Medications and Allergies Home Medications Medication Instructions Recorded Confirmed Type Cetirizine HCl [Zyrtec] 10 mg PO DAILY 02/16/20 08/14/21 History LORazepam [Ativan] 0.5 mg PO HS PRN 08/14/21 08/14/21 History Metoprolol Succinate (ER) [Toprol 12.5 mg PO HS 08/14/21 08/14/21 History XL] Allergies Allergy/AdvReac Type Severity Reaction Status Date / Time Sulfa (Sulfonamide Allergy Intermediate Rash/Hives Verified 08/14/21 14:19 Antibiotics) iodine Allergy Rash/Hives Verified 08/14/21 14:19 Physical Exam Vitals: Vital Signs Temp Pulse Pulse Resp BP BP Pulse Ox 08/15/21 05:30 92 16 112/67 97 08/15/21 02:00 16 08/14/21 23:20 98.2 F 92 16 108/71 97 08/14/21 19:44 95 16 116/75 99 08/14/21 16:45 16 08/14/21 16:24 98.8 F 94 16 120/76 97 08/14/21 15:54 98.3 F 95 12 122/69 100 08/14/21 14:19 133 H 120/59 08/14/21 13:10 140 H 20 121/66 08/14/21 13:00 141 H 22 121/66 100 08/14/21 12:50 135 H 24 102/77 100 08/14/21 12:40 135 H 18 127/69 100 08/14/21 12:08 97.5 F L 213 H 20 142/85 99 Intake and Output 08/14/21 08/15/21 08/15/21 22:59 06:59 14:59 Intake Total 500 Balance 500 Intake: Oral 500 Other: # Voids 1 1 Weight 58.967 kg 58 kg Results CBC & Chem 7: 08/14/21 12:45 08/14/21 12:45 Labs: Abnormal Lab Results - Last 24 Hours (Table) 08/14/21 08/15/21 Range/Units 12:45 07:05 BUN 18 H (7-17) mg/dL Glucose 117 H (74-99) mg/dL TSH <0.015 L (0.465-4.680) mIU/L Free T4 5.75 H (0.78-2.19) ng/dL Thrombosis Risk Factor Assmnt - Choose All That Apply Any of the Below Risk Factors Present?: Yes Each Factor Represents 1 point: Age 41-60 years Other Risk Factors: No Thrombosis Risk Factor Assessment Total Risk Factor Score: 1 Thrombosis Risk Factor Assessment Level: Low Risk
[2021-08-15] MEDS ORDERED: methIMAzole 5 MG TAB PO SCH (13:00)
[2021-08-15 14:09] VITALS: TEMP 98.1
[2021-08-15 14:10] VITALS: BP 131/79; PULSE 92
--- NOTE | 2021-08-17 10:40 | ECHOF ---
Referral Reason:lv function MEASUREMENTS -------- HEIGHT: 157.5 cm WEIGHT: 57.6 kg BP: RVIDd: 2.5 cm (< 3.3) IVSd: 0.7 cm (0.6 - 1.1) LVIDd: 4.0 cm (3.9 - 5.3) LVPWd: 1.1 cm (0.6 - 1.1) IVSs: 1.0 cm LVIDs: 2.7 cm LVPWs: 1.3 cm LA Diam: 2.8 cm (2.7 - 3.8) LAESV Index (A-L): 22.04 ml/m Ao Diam: 3.0 cm (2.0 - 3.7) AV Cusp: 1.6 cm (1.5 - 2.6) MV EXCURSION: 21.150 mm (> 18.000) MV EF SLOPE: 82 mm/s (70 - 150) EPSS: 0.7 cm MV E Jeet: 1.20 m/s MV DecT: 198 ms MV A Jeet: 0.95 m/s MV E/A Ratio: 1.26 RAP: 5.00 mmHg RVSP: 44.77 mmHg FINDINGS -------- Sinus rhythm. This was a technically good study. LV size, wall thickness and systolic function are normal, with an EF greater than 55%. The left simone tricular size is normal. The right ventricle is normal in size. Normal LA size by volume 22+/-6 ml/m2. The right atrial size is normal. The aortic valve is trileaflet, and appears structurally normal. No aortic stenosis or regurgitation. There is trace mitral regurgitation. Mild tricuspid regurgitation present. There is mild pulmonary hypertension. The right ventricular systolic pressure, as measured by Doppler, is 44.77mmHg. There is no pulmonic regurgitation present. There is no pericardial effusion. CONCLUSIONS -------- 1. LV size, wall thickness and systolic function are normal, with an EF greater than 55%. 2. The left ventricular size is normal. 3. The right ventricle is normal in size. 4. Normal LA size by volume 22+/-6 ml/m2. 5. The right atrial size is normal. 6. The aortic valve is trileaflet, and appears structurally normal. No aortic stenosis or regurgitati on. 7. There is trace mitral regurgitation. 8. Mild tricuspid regurgitation present. 9. There is mild pulmonary hypertension. 10. The right ventricular systolic pressure, as measured by Doppler, is 44.77mmHg. 11. There is no pulmonic regurgitation present. 12. There is no pericardial effusion. [employer] WORKER: Alycia Cadet RDCS
== END 2021-08-15 15:23 | disposition home or self-care (01) | DRG 310 ==
LOC: EC 12:05 → 3SCARD 14:15
PROVIDERS: ADMIT Internal Medicine Geriatric Medicine; ATTEND Internal Medicine Geriatric Medicine
PROC: 5A2204Z Restoration of Cardiac Rhythm, Single (ICD-10-PCS; principal; 2021-08-14)
DX: I47.1 Supraventricular tachycardia (principal); J30.2 Other seasonal allergic rhinitis; F41.1 Generalized anxiety disorder; E05.90 Thyrotoxicosis, unspecified without thyrotoxic crisis or storm; I08.1 Rheumatic disorders of both mitral and tricuspid valves; Z20.822 Contact with and (suspected) exposure to COVID-19; Z79.82 Long term (current) use of aspirin; Z79.899 Other long term (current) drug therapy; Z82.49 Family history of ischemic heart disease and other diseases of the circulatory system; Z87.442 Personal history of urinary calculi; Z87.440 Personal history of urinary (tract) infections; Z98.890 Other specified postprocedural states; Z88.2 Allergy status to sulfonamides; Z88.8 Allergy status to other drugs, medicaments and biological substances
CPT/HCPCS: 36415; 80048; 83735; 84439; 84443; 84484; 85025; 87635; 93306; 96361; 96374; 96375; 99285

== ENCOUNTER → 2021-09-05 | Outpatient (CLI) | payer BC ==
--- NOTE | 2021-09-06 10:46 | MM ---
Reason for exam: screening (asymptomatic). Last mammogram was performed 1 year and 1 month ago. History: Patient had first child at age 34. Family history of breast cancer in maternal grandmother, breast cancer in maternal cousin at age 40, and breast cancer in maternal aunt at age 78. Physical Findings: A clinical breast exam by your physician is recommended on an annual basis and results should be correlated with mammographic findings. MG 3D Screening Mammo W/Cad Bilateral CC and MLO view(s) were taken. Prior study comparison: July 27, 2020, bilateral MG 3d screening mammo w/cad. December 17, 2018, bilateral MG 3d screening mammo w/cad. The breast tissue is extremely dense which could obscure a lesion on mammography. There is no discrete abnormality including area of concern. Right axilla negative marked with BB. No significant changes when compared with prior studies. ASSESSMENT: Benign, BI-RAD 2 RECOMMENDATION: Routine screening mammogram of both breasts in 1 year. Manage on a clinical basis with regard to right axilla.
== END ==
LOC: RADMAMWWP 07:29
PROVIDERS: ATTEND Internal Medicine Geriatric Medicine
DX: Z12.31 Encounter for screening mammogram for malignant neoplasm of breast (principal); R94.6 Abnormal results of thyroid function studies
CPT/HCPCS: 77063; 77067; 84439; 84443; 84480

== ENCOUNTER → 2022-05-13 | Outpatient (CLI) | payer BC ==
[2022-05-13 11:34] LABS: HCT 39.1 % (37.2-46.3); HGB 12.9 g/dL (12.0-15.0); MCH 28.2 pg (27.0-32.0); MCV 85.6 fL (80.0-97.0); Mean Platelet Volume 10.3 fL (9.5-12.2); NRBC Per 100 WBC 0 /100 WBCS (0.0-0.0); Platelet Count 330 X 10*3/uL (140-440); RBC 4.57 X 10*6/uL (4.10-5.20); RDW 12.7 % (11.5-14.5); WBC 5.17 X 10*3/uL (4.50-10.00)
[2022-05-13 11:35] LABS: African American GFR (CKD) 122.1 (60.0-200.0); Anion Gap 9.7 mmol/L (10.00-18.00); Carbon Dioxide 23.3 mmol/L (20.0-27.5); Non-African American GFR(CKD) 105.4 (60.0-200.0)
== END | disposition home or self-care (01) ==
LOC: LABPAT 07:28
PROVIDERS: ATTEND Internal Medicine Clinical Cardiac Electrophysiology
DX: Z01.812 Encounter for preprocedural laboratory examination (principal); I47.1 Supraventricular tachycardia; R00.2 Palpitations
CPT/HCPCS: 36415; 80051; 82565; 84520; 85027

== ENCOUNTER → 2022-11-13 | Outpatient (CLI) | payer BC ==
--- NOTE | 2022-11-14 19:45 | MM ---
Reason for Exam: Screening (asymptomatic). Last mammogram was performed 1 year(s) and 2 month(s) ago. Patient History: Menarche at age 11. First Full-Term at age 34. Late child-bearing (after 30). Patient has history of breast feeding. Maternal grandmother had breast cancer, age 80. Maternal cousin had breast cancer, age 40. Maternal aunt had breast cancer, age 78. Last menstrual period: 10/20/2022 Risk Values: Talita 5 year model risk: 1.1%. NCI Lifetime model risk: 13.1%. Prior Study Comparison: 12/17/2018 Bilateral Screening Mammogram, [facility]. 07/27/2020 Bilateral Screening Mammogram, [facility]. 09/05/2021 Bilateral Screening Mammogram, [facility]. Tissue Density: The breast tissue is extremely dense which could obscure a lesion on mammography. Findings: Analyzed By CAD. There is no suspicious group of microcalcifications or new suspicious mass in either breast. Overall Assessment: Negative, BI-RAD 1 Management: Screening Mammogram of both breasts in 1 year. 1. Patient should continue monthly self breast exams. 2. A clinical breast exam by your physician is recommended on an annual basis. 3. This exam should not preclude additional follow-up of suspicious palpable abnormalities. Electronically signed and approved by: Diana Renee M.D. Radiologist
== END | disposition home or self-care (01) ==
LOC: RADMAMWWP 13:17
PROVIDERS: ATTEND Obstetrics & Gynecology
DX: Z12.31 Encounter for screening mammogram for malignant neoplasm of breast (principal); Z80.3 Family history of malignant neoplasm of breast
CPT/HCPCS: 77063; 77067

== ENCOUNTER → 2023-05-15 | Outpatient (CLI) | payer BC ==
[2023-05-16 01:45] LABS: Basophils # (A) 0.05 X 10*3/uL (0.00-0.10); Basophils % (A) 0.9 %; Eosinophils # (A) 0.15 X 10*3/uL (0.04-0.35); Eosinophils % (A) 2.6 %; HCT 34.1 % (37.2-46.3); HGB 10.8 d/dL (12.0-15.0); Lymphocytes % (A) 24.3 %; MCH 26.9 pg (27.0-32.0); MCHC 31.7 d/dL (32.0-37.0); MCV 84.8 FL (80.0-97.0); Monocytes # (A) 0.39 X 10*3/uL (0.20-1.00); Monocytes % (A) 6.8 %; NRBC Per 100 WBC 0 X 10*3/uL (0.00-0.01); Neutrophils # (A) 3.77 X 10*3/uL (1.80-7.70); Neutrophils % (A) 65.2 %; Platelet Count 338 X 10*3/uL (140-440); RBC 4.02 X 10*6/uL (4.10-5.20); RDW 13.3 % (11.5-14.5); WBC 5.77 X 10*3/uL (4.50-10.00)
== END | disposition home or self-care (01) ==
LOC: LABPAT 12:47
PROVIDERS: ATTEND Obstetrics & Gynecology
DX: Z01.812 Encounter for preprocedural laboratory examination (principal); N93.8 Other specified abnormal uterine and vaginal bleeding; N84.0 Polyp of corpus uteri
CPT/HCPCS: 36415; 85025

== ENCOUNTER 2023-05-23 06:15 | Day surgery (SDC) | payer BC ==
--- NOTE | 2023-05-19 13:58 | P.HPIHPCON ---
History of Present Illness H&P Date: 05/19/23 Chief Complaint: Abnormal Uterine Bleeding Ms. Shipley is a 43 year old presenting with abnormal uterine bleeding. Endometrial biopsy in the office showed fragments of endometrial polyp and was negative for dysplasia or malignancy. Ultrasound shows anteverted, mildly heterogenous uterus measuring 9.8 x 5.8 4.3 cm. Endometrial polyp is seen, measuring 12 x 10 x 6 mm. Right ovary has a small simple cyst. Left ovary has a hemorrhagic corpus luteum cyst measuring 2.4 x 2.1 x 1.7 cm. The patient also requests tubal ligation while under anesthesia Consent for Procedure: I have explained the operation/procedure to the patient, including the risks, benefits, side effects, alternative therapies (including not receiving the proposed treatment or service), the likelihood of the patient achieving his/her goals, and potential recuperation problems for the procedure/sedation/analgesia, as well as any blood products, if indicated. I also explained to the patient the risks, benefits and side effects of the alternatives, as well as the risks related to not receiving the proposed procedure, care, treatment, or services. Past Medical History Past Medical History: GERD/Reflux, Supraventricular Tachycardia (SVT) Additional Past Medical History / Comment(s): See Dr Garay's H&P,Prolapsed mitral valve, past SVT converted with carotid massage and on her own 1996,last 2 times in ER used adenosine, seasonal allergies, UTI, nephrolithiasis History of Any Multi-Drug Resistant Organisms: None Reported Past Surgical History: Section Additional Past Surgical History / Comment(s): widsom teeth Past Anesthesia/Blood Transfusion Reactions: No Reported Reaction, Motion Sickness Past Psychological History: Anxiety Additional Psychological History / Comment(s): Pt resides with her fiancee and their 5 yr old paresh. Pt is independent. Smoking Status: Never smoker Past Alcohol Use History: None Reported Past Drug Use History: None Reported - Past Family History Father Family Medical History: Myocardial Infarction ([place]) Additional Family Medical History / Comment(s): Father from [place] at the age of 57 yrs. Mother Family Medical History: No Reported History Additional Family Medical History / Comment(s): Mother is healthy Medications and Allergies Home Medications Medication Instructions Recorded Confirmed Type Cetirizine HCl [Zyrtec] 10 mg PO DAILY 02/16/20 05/21/22 History LORazepam [Ativan] 0.5 mg PO HS PRN 08/14/21 05/21/22 History Propranolol Er 60 mg PO 2200 05/17/22 05/17/22 History methIMAzole [Tapazole] 5 mg PO MOWEFR 05/17/22 05/21/22 History Allergies Allergy/AdvReac Type Severity Reaction Status Date / Time Sulfa (Sulfonamide Allergy Intermediate Rash/Hives Verified 05/21/22 12:53 Antibiotics) iodine Allergy Rash/Hives Verified 05/21/22 12:53 Surgical - Exam Focused physical exam is performed. This is a healthy-appearing female in no apparent distress. Breathing is non-labored. The patient is warm and well- perfused. Abdomen is soft and non-tender. Extremities are non-tender and non- edematous. Assessment and Plan Assessment: 43 year old with AUB and desires permanent sterilization who presents for surgical management Plan: Risks, benefits, and alternatives to hysteroscopy D&C with Myosure Polypectomy, Novasure Endometrial Ablation, and Laparoscopic Bilateral Salpingectomy are discussed with the patient including risk of bleeding, infection, uterine perforation, damage to surrounding structures including bladder/bowel/ureters/ovaries, and post-operative VTE. We discussed the bilateral salpingectomy is non-reversible and the that there will be the possibility of regret. The patient understands these risks and desires to proceed with surgery as scheduled. Time with Patient: Less than 30
[~2023-05-23 06:15] MED LIST: DEXAMETHASONE SOD PHOSPHATE 4 MG/ML 1 ML VIAL IV ONE; ONDANSETRON 4 MG/2 ML VIAL IVP ONE; Pre Op ABX Message 1 EACH MISC MISCELLANE ONE; SCOPOLAMINE 1 MG/72 HR PATCH TRANSDERM ONE
[2023-05-23] MEDS: LACTATED RINGERS 1,000 ML IV SCH ×2 (06:40→09:26)
[2023-05-23] MEDS ORDERED: HYDROmorphone 0.5 MG/0.5 ML SYRINGE IVP PRN (07:00)
[2023-05-23] MEDS ORDERED: MIDAZOLAM 2 MG/2 ML VIAL IV PRN (07:00)
[2023-05-23] MEDS ORDERED: LIDOCAINE 1% (10MG/ML) FOR IV START INTRADERMA ONE (07:08)
[2023-05-23] MEDS ORDERED: BUPIVACAINE (PF) 0.25% 30 ML VIAL SQ ONE ×2 (07:49→08:10)
[2023-05-23 09:06] VITALS: TEMP 98
--- NOTE | 2023-05-23 09:06 | P.OP ---
Date of Procedure: 05/23/23 Preoperative Diagnosis: 1. Abnormal Uterine Bleeding 2. Endometrial Polyps 3. Desires permanent sterilization 4. Risk Reduction Postoperative Diagnosis: Same Procedure(s) Performed: Laparoscopic Bilateral Salpingectomy, Hysteroscopy Dilation and Curettage with MyoSure Polypectomy, Novasure Endometrial Ablation Implants: None Anesthesia: PRIMITIVOA Surgeon: Elaine Cain Estimated Blood Loss (ml): 20 IV fluids (ml): 700 Urine output (ml): 0 Pathology: other (endometrial curettings) Condition: stable Disposition: same day Indications for Procedure: Ms. Shipley is a 43 year old with AUB and desires permanent sterilization who presents for surgical management. Risks, benefits, and alternatives to hysteroscopy D&C with Myosure Polypectomy, Novasure Endometrial Ablation, and Laparoscopic Bilateral Salpingectomy are discussed with the patient including risk of bleeding, infection, uterine perforation, damage to surrounding structures including bladder/bowel/ureters/ovaries, and post-operative VTE. We discussed the bilateral salpingectomy is non-reversible and the that there will be the possibility of regret. The patient understands these risks and desires to proceed with surgery as scheduled. Operative Findings: On laparoscopy, normal appearing appendix. Uterus, bilatearal fallopian tubes, and ovaries are unremarkable. Uterus sounds to 9 centimeters. On hysteroscopy there is polypoid tissue within the endometrial cavity that is removed with the MyoSure instrument. Description of Procedure: Patient was taken to the OR with IV fluid running and pneumatic compression stockings on both legs. General anesthesia was obtained without difficulty. The patient was placed in the dorsal lithotomy position with Noah-type stirrups with knees bent at 30 degree angles. Examination under anesthesia revealed a normal-sized, anteverted uterus. The patient as prepared and draped. The bladder was emptied. A speculum was placed into the vagina. The anterior lip of the cervix was grasped with a single-toothed tenaculum. A uterine manipulator was introduced. A horizontal skin incision was made at the umbilical fold. The periumbilical skin was manually elevated. The Veress needle was introduced into the peritoneal cavity at a straight angle without difficulty. A saline drop test was performed to validate intraperitoneal placement. The pneumoperitoneum was established with CO2 gas to a pressure of 15mmHg. A 5mm trocar was inserted into the abdomen under direct laparoscopic visualization. Intraabdominal survey revealed lack of any visceral or vascular injury. The pelvic and abdominal anatomy was noted as above. Two additional laparoscopic assit ports were placed in the right and left lower quadrants. A Chantel Grasper was used to forklift picker the fimbriated end of the right fallopian tube. The LigaSure device was used to seal and ligate the fallopian tube sequentially to the level of the uterine cornua. The fallopian tube was then transected and removed through the laparoscopic port. This process was repeated on the right side. The right fallopian tube was removed with a 5mm EndoCatch bag. Attention was then turned to the vaginal portion of the procedure. The cervix perineum and lower abdomen are prepped and draped in the usual sterile fashion. Examination under anesthesia reveals an anteverted uterus. The anterior lip of the cervix is grasped with a double toothed tenaculum after the weighted speculum is placed into the vagina. The uterus sounds to a depth of 9 cm in the anteverted position. The Hanks dilators are placed and the cervix was dilated to 12 mm. The hysteroscope was then introduced and with saline infusion the cavity is distended. Polypoid tissue is seen and removed from the endometrium. Fluid deficit was noted to be 1650. At this time, the Novasure portion of the case is started. The cavity length is 6 centimeters, the cavity with is measured to be 4 centimeters. The NovaSure ablated the cavity for 1 minute and 25 seconds at a power of 132 Spivey. Excellent hemostasis was noted at the end of the case. The patient tolerated the procedure well. All instruments were removed from the abdomen and vagina, and all counts were correct times two. The patient was taken to the recovery room in stable condition.the recovery room in stable condition.
[2023-05-23 09:52] VITALS: RESP 18
[2023-05-23] MEDS ORDERED: ACETAMINOPHEN TAB 325 MG TAB ONE (09:58)
[2023-05-23 10:16] VITALS: BP 132/83; PULSE 66
== END 2023-05-23 10:41 | disposition home or self-care (01) ==
LOC: OR 06:15
PROVIDERS: ATTEND Obstetrics & Gynecology
DX: N93.9 Abnormal uterine and vaginal bleeding, unspecified (principal); N84.0 Polyp of corpus uteri; Z30.2 Encounter for sterilization; I49.9 Cardiac arrhythmia, unspecified; J44.9 Chronic obstructive pulmonary disease, unspecified; J45.909 Unspecified asthma, uncomplicated; E66.01 Morbid (severe) obesity due to excess calories; K21.9 Gastro-esophageal reflux disease without esophagitis; Z91.041 Radiographic dye allergy status; K74.60 Unspecified cirrhosis of liver; Z88.2 Allergy status to sulfonamides; F41.9 Anxiety disorder, unspecified; F17.210 Nicotine dependence, cigarettes, uncomplicated; Z79.899 Other long term (current) drug therapy
CPT/HCPCS: 88305; 88302; 58661; 58563; J1100; J2405; J0665

== ENCOUNTER → 2024-06-01 | Outpatient (CLI) | payer BC ==
--- NOTE | 2024-06-07 09:29 | MM ---
Reason for Exam: Screening (asymptomatic). Last mammogram was performed 1 year(s) and 7 month(s) ago. Patient History: Menarche at age 11. First Full-Term at age 34. Late child-bearing (after 30). Patient has history of breast feeding. Maternal grandmother had breast cancer, age 80. Maternal cousin had breast cancer, age 40. Maternal aunt had breast cancer, age 78. Risk Values: Talita 5 year model risk: 1.2%. NCI Lifetime model risk: 12.8%. Prior Study Comparison: 07/27/2020 Bilateral Screening Mammogram, [facility]. 09/05/2021 Bilateral Screening Mammogram, [facility]. 11/13/2022 Bilateral MG 3D screening mammo w/cad, [facility]. Tissue Density: The breasts are heterogeneously dense, which may obscure small masses. Findings: Analyzed By CAD. Right breast: There is no suspicious group of microcalcifications or new suspicious mass. Left breast: There is no suspicious group of microcalcifications or new suspicious mass. Overall Assessment: Negative, BI-RAD 1 Management: Screening Mammogram of both breasts in [address] [facility] will attempt to contact patient to return for supplemental views and ultrasound if indicated. Patient should continue monthly self-breast exams. A clinical breast exam by your physician is recommended on an annual basis. This exam should not preclude additional follow-up of suspicious palpable abnormalities. Note on Talita scores and lifetime risk: 1. A Talita score greater than 3% is considered moderate risk. If this is the case, consider specialist referral to assess eligibility for a risk reducing agent. 2. If overall lifetime risk for the development of breast cancer is 20% or higher, the patient may qualify for future screening with alternating mammogram and breast MRI. [facility], , 06/07/2024 9:26 AM. Electronically signed and approved by: Suhail Summers DO
== END | disposition home or self-care (01) ==
LOC: RADMAMWWP 12:56
PROVIDERS: ATTEND Internal Medicine Geriatric Medicine
DX: Z12.31 Encounter for screening mammogram for malignant neoplasm of breast (principal); R92.333 Mammographic heterogeneous density, bilateral breasts; Z80.3 Family history of malignant neoplasm of breast
CPT/HCPCS: 77063; 77067